=== PATIENT | female | born 1975 | race African-American/Black ===

== ENCOUNTER 2019-07-13 09:34 | Inpatient (IN) | payer MEDICARE ==
[~2019-07-13] VITALS: Ht 162.6 cm; Wt 93.6 kg
[2019-07-13] MEDS ORDERED: LEVO100 PO (09:45)
[2019-07-13] MEDS ORDERED: BUSP10TA23 PO (09:45)
[2019-07-13] MEDS ORDERED: HYDR50CA9 PO (09:45)
[2019-07-13] MEDS ORDERED: TOPI25 PO (09:45)
[2019-07-13] MEDS ORDERED: NAPR-1025 PO (09:45)
[2019-07-13] MEDS ORDERED: QUET200T PO (09:45)
[2019-07-13] MEDS ORDERED: DULO60CA44 PO (09:45)
[2019-07-13] MEDS ORDERED: TRIA1TAB93 PO (09:45)
[2019-07-13] MEDS ORDERED: PREG75 PO (09:45)
[2019-07-13] MEDS ORDERED: COMP5 PO (09:45)
[2019-07-13] MEDS ORDERED: MORPHINE SULFATE 4 MG/ML SYRINGE IVP ONE (10:45)
[2019-07-13] MEDS ORDERED: SODIUM CHLORIDE 0.9% 1,000 ML IV ONE (10:45)
[2019-07-13] MEDS ORDERED: VANCOMYCIN HCL 1 GM/D5% WATER 200 ML IV ONE (10:45)
[2019-07-13 11:05] LABS: ANION GAP 10 mmol/L (8-16); BASOPHILS % (AUTO) 0.7 % (0.0-2.0); CALCIUM, TOTAL 9.3 mg/dL (8.8-10.5); CARBON DIOXIDE 28 mmol/L (22-29); CHLORIDE 105 mmol/L (98-107); CREATININE 1.03 mg/dL (0.60-1.30); EOSINOPHILS % (AUTO) 2.5 % (1.0-6.0); GLOMERULAR FILTR. RATE CALC > 60 mL/min (>60); GLUCOSE,RANDOM 84 mg/dL (70-110); HEMATOCRIT 41.4 % (36-46); HEMOGLOBIN 13.7 g/dL (12.0-16.0); LYMPHOCYTES # (AUTO) 1.3 K/uL (1.0-4.8); LYMPHOCYTES % (AUTO) 11.4 % (22.0-44.0); MEAN CORPUSCULAR HEMOGLOBIN 28.6 pg (26.0-34.0); MEAN CORPUSCULAR HGB CONC 33.1 G/dL (31.0-37.0); MEAN CORPUSCULAR VOLUME 86 fL (80-100); MONOCYTES # (AUTO) 0.6 K/uL (0.1-1.0); MONOCYTES % (AUTO) 5.6 % (2.0-9.0); NEUTROPHILS # (AUTO) 8.9 K/uL (1.8-7.7); NEUTROPHILS % (AUTO) 79.8 % (40.0-70.0); PLATELET COUNT (AUTO) 317 K/uL (150-450); POTASSIUM 3.4 mmol/L (3.5-5.1); SODIUM SERUM 143 mmol/L (136-145); UREA NITROGEN, BLOOD 22 mg/dL (7-18)
[2019-07-13 11:14] LABS: LACTIC ACID 0.6 mmol/L (0.4-2.0)
[2019-07-13] MEDS ORDERED: IOVERSOL 350 MG/ML 100 ML VIAL ONE (11:35)
[2019-07-13] MEDS ORDERED: IBUPROFEN 600 MG TABLET PO ONE (11:45)
[2019-07-13] MEDS ORDERED: ACETAMINOPHEN 325 MG TABLET PO PRN (12:15)
[2019-07-13] MEDS ORDERED: ONDANSETRON HCL 4 MG/2 ML VIAL IVP PRN (12:15)
[2019-07-13] MEDS ORDERED: COMP10 PO (12:21)
[2019-07-13 13:59] VITALS: BP 115/71
[2019-07-13] MEDS ORDERED: INFLUENZA VIRUS VACCINE QVS 2019-20 (3YR+)/PF 60 MCG/0.5 ML SYRINGE IM ONE (15:15)
[2019-07-13] MEDS ORDERED: LEVE500T53 PO ×2 (15:50→15:53)
[2019-07-13] MEDS: BusPIRone HCL 10 MG TABLET PO SCH ×2 (16:18→20:19)
[2019-07-13] MEDS: HYDROCODONE/ACETAMINOPHEN 5-325 MG TABLET PO PRN ×2 (16:18→21:34)
[2019-07-13 17:27] VITALS: BP 112/81
[2019-07-13] MEDS: MORPHINE SULFATE 4 MG/ML SYRINGE IVP PRN ×2 (17:31→23:54)
[2019-07-13 20:19] VITALS: BP 121/89
[2019-07-13] MEDS: QUEtiapine FUMARATE 200 MG TABLET PO SCH (20:19)
[2019-07-13] MEDS: PREGABALIN 75 MG CAPSULE PO SCH (20:19)
[2019-07-13] MEDS: TOPIRAMATE 25 MG TABLET PO SCH (20:19)
[2019-07-13] MEDS: HydrOXYzine PAMOATE 50 MG CAPSULE PO SCH (20:19)
[2019-07-13] MEDS ORDERED: SODIUM CHLORIDE 0.9% 500 ML IV ONE (20:26)
[2019-07-13] MEDS: DULoxetine HCL 60 MG CAPSULE PO SCH (20:28)
[2019-07-13] MEDS: PIPERACILLIN/TAZO 3.375 GM/D5W 50 ML IV SCH (20:28)
[2019-07-13 23:42] VITALS: BP 102/54
[2019-07-13 23:52] VITALS: BP 120/73
[2019-07-14] MEDS: PIPERACILLIN/TAZO 3.375 GM/D5W 50 ML IV SCH ×4 (02:04→20:22)
[2019-07-14] MEDS: MORPHINE SULFATE 2 MG/ML SYRINGE IVP PRN ×4 (04:50→21:56)
[2019-07-14 05:58] VITALS: BP 106/63
[2019-07-14] MEDS: LEVOTHYROXINE SODIUM 100 MCG TABLET PO SCH (06:19)
[2019-07-14] MEDS: IBUPROFEN 400 MG TABLET PO PRN ×2 (07:07→17:38)
[2019-07-14 07:31] VITALS: BP 115/66
[2019-07-14] MEDS: PREGABALIN 75 MG CAPSULE PO SCH ×2 (07:36→20:21)
[2019-07-14] MEDS: LevETIRAcetam 500 MG TABLET PO SCH ×2 (07:37→20:21)
[2019-07-14 07:46] LABS: BASOPHILS % (AUTO) 0.6 % (0.0-2.0); EOSINOPHILS % (AUTO) 3.6 % (1.0-6.0); HEMATOCRIT 37.3 % (36-46); HEMOGLOBIN 12.2 g/dL (12.0-16.0); LYMPHOCYTES # (AUTO) 1.5 K/uL (1.0-4.8); LYMPHOCYTES % (AUTO) 15.7 % (22.0-44.0); MEAN CORPUSCULAR HEMOGLOBIN 28.9 pg (26.0-34.0); MEAN CORPUSCULAR HGB CONC 32.8 G/dL (31.0-37.0); MEAN CORPUSCULAR VOLUME 88 fL (80-100); MONOCYTES # (AUTO) 0.8 K/uL (0.1-1.0); MONOCYTES % (AUTO) 8.1 % (2.0-9.0); NEUTROPHILS # (AUTO) 6.7 K/uL (1.8-7.7); PLATELET COUNT (AUTO) 250 K/uL (150-450); RED BLOOD CELL COUNT(AUTO) 4.23 MIL/uL (4.00-5.20)
[2019-07-14] MEDS: TOPIRAMATE 25 MG TABLET PO SCH ×2 (07:50→20:22)
[2019-07-14] MEDS: HydrOXYzine PAMOATE 50 MG CAPSULE PO SCH ×2 (07:51→20:21)
[2019-07-14] MEDS: BusPIRone HCL 10 MG TABLET PO SCH ×3 (07:51→20:22)
[2019-07-14] MEDS: PROCHLORPERAZINE MALEATE 10 MG TABLET PO PRN (07:52)
[2019-07-14 08:18] LABS: ALANINE AMINOTRANSFERASE 19 U/L (12-78); ALBUMIN 3.1 g/dL (3.4-5.0); ALKALINE PHOSPHATASE 126 U/L (46-116); ANION GAP 5 mmol/L (8-16); ASPARTATE AMINOTRANSFERASE 21 U/L (15-37); BILIRUBIN,TOTAL 0.4 mg/dL (0.1-1.0); CALCIUM, TOTAL 8.8 mg/dL (8.8-10.5); CARBON DIOXIDE 32 mmol/L (22-29); CHLORIDE 106 mmol/L (98-107); CREATININE 0.93 mg/dL (0.60-1.30); GLOMERULAR FILTR. RATE CALC > 60 mL/min (>60); GLUCOSE,RANDOM 85 mg/dL (70-110); POTASSIUM 3.4 mmol/L (3.5-5.1); SODIUM SERUM 143 mmol/L (136-145); TOTAL PROTEIN, SERUM 7.5 g/dL (6.4-8.2); UREA NITROGEN, BLOOD 15 mg/dL (7-18)
[2019-07-14] MEDS ORDERED: TRIAMTERENE/HCTZ 37.5-25 MG TABLET PO SCH (09:00)
[2019-07-14 11:18] VITALS: BP 139/72
[2019-07-14] MEDS: OxyCODONE HCL/ACETAMINOPHEN 5-325 MG TABLET PO PRN ×2 (13:14→20:21)
[2019-07-14] MEDS: TRIAMTERENE/HCTZ 37.5-25 MG CAPSULE PO SCH (13:17)
[2019-07-14 15:18] VITALS: BP 132/82
[2019-07-14] MEDS ORDERED: POTASSIUM CHL 10 MEQ/WATER 50 ML IV PRN (17:45)
[2019-07-14] MEDS: POTASSIUM CHLORIDE 20 MEQ ER TABLET PO PRN (17:59)
[2019-07-14] MEDS: QUEtiapine FUMARATE 200 MG TABLET PO SCH (20:21)
[2019-07-14] MEDS: DULoxetine HCL 60 MG CAPSULE PO SCH (20:22)
[2019-07-14 20:31] VITALS: BP 140/80
[2019-07-15] MEDS: IBUPROFEN 400 MG TABLET PO PRN ×2 (01:03→18:44)
[2019-07-15] MEDS: PIPERACILLIN/TAZO 3.375 GM/D5W 50 ML IV SCH ×4 (01:03→20:03)
[2019-07-15] MEDS: MORPHINE SULFATE 2 MG/ML SYRINGE IVP PRN ×4 (04:37→23:54)
[2019-07-15 04:40] VITALS: BP 116/68
[2019-07-15 05:37] LABS: BASOPHILS % (AUTO) 0.4 % (0.0-2.0); EOSINOPHILS % (AUTO) 3.9 % (1.0-6.0); HEMATOCRIT 35.4 % (36-46); HEMOGLOBIN 11.8 g/dL (12.0-16.0); LYMPHOCYTES # (AUTO) 1.5 K/uL (1.0-4.8); LYMPHOCYTES % (AUTO) 16.6 % (22.0-44.0); MEAN CORPUSCULAR HEMOGLOBIN 29.1 pg (26.0-34.0); MEAN CORPUSCULAR HGB CONC 33.3 G/dL (31.0-37.0); MEAN CORPUSCULAR VOLUME 88 fL (80-100); MONOCYTES # (AUTO) 0.8 K/uL (0.1-1.0); MONOCYTES % (AUTO) 9.1 % (2.0-9.0); NEUTROPHILS # (AUTO) 6.4 K/uL (1.8-7.7); PLATELET COUNT (AUTO) 243 K/uL (150-450); RED BLOOD CELL COUNT(AUTO) 4.05 MIL/uL (4.00-5.20); RED CELL DISTRIBUTION WIDTH 14.9 % (11.5-14.5)
[2019-07-15] MEDS: LEVOTHYROXINE SODIUM 100 MCG TABLET PO SCH (06:11)
[2019-07-15 06:14] LABS: ALANINE AMINOTRANSFERASE 32 U/L (12-78); ALBUMIN 2.8 g/dL (3.4-5.0); ALKALINE PHOSPHATASE 114 U/L (46-116); ANION GAP 5 mmol/L (8-16); ASPARTATE AMINOTRANSFERASE 33 U/L (15-37); BILIRUBIN,TOTAL 0.3 mg/dL (0.1-1.0); CALCIUM, TOTAL 8.9 mg/dL (8.8-10.5); CARBON DIOXIDE 30 mmol/L (22-29); CHLORIDE 107 mmol/L (98-107); CREATININE 0.96 mg/dL (0.60-1.30); GLOMERULAR FILTR. RATE CALC > 60 mL/min (>60); GLUCOSE,RANDOM 80 mg/dL (70-110); POTASSIUM 3.7 mmol/L (3.5-5.1); SODIUM SERUM 142 mmol/L (136-145); UREA NITROGEN, BLOOD 16 mg/dL (7-18)
[2019-07-15 08:01] VITALS: BP 103/60
[2019-07-15] MEDS ORDERED: RINGERS SOLUTION,LACTATED 1,000 ML IV ONE ×2 (10:00→10:45)
[2019-07-15] MEDS ORDERED: LIDOCAINE/PF 1% 30 ML VIAL ONE (10:11)
[2019-07-15] MEDS ORDERED: SODIUM CL IRRIG SOLN BAG 3,000 ML IRRIG ONE (10:12)
[2019-07-15] MEDS ORDERED: BUPIVACAINE HCL/PF 0.5% 30 ML VIAL ONE (10:12)
[2019-07-15] MEDS ORDERED: SODIUM CHLORIDE 0.9% 10 ML ONE (10:13)
[2019-07-15 10:49] LABS: HCG,QUANTITATIVE 3 mIU/mL (0-6)
[2019-07-15] MEDS: HydrOXYzine PAMOATE 50 MG CAPSULE PO SCH ×2 (14:25→20:02)
[2019-07-15] MEDS: PREGABALIN 75 MG CAPSULE PO SCH ×2 (14:25→20:02)
[2019-07-15] MEDS: TRIAMTERENE/HCTZ 37.5-25 MG CAPSULE PO SCH (14:25)
[2019-07-15] MEDS: LevETIRAcetam 500 MG TABLET PO SCH ×2 (14:25→20:02)
[2019-07-15] MEDS: BusPIRone HCL 10 MG TABLET PO SCH ×3 (14:26→20:02)
[2019-07-15] MEDS: TOPIRAMATE 25 MG TABLET PO SCH ×2 (14:26→20:02)
[2019-07-15 14:37] VITALS: BP 115/73
[2019-07-15 16:01] VITALS: BP 102/65
[2019-07-15 19:43] VITALS: BP 115/66
[2019-07-15] MEDS: QUEtiapine FUMARATE 200 MG TABLET PO SCH (20:02)
[2019-07-15] MEDS: DULoxetine HCL 60 MG CAPSULE PO SCH (20:02)
[2019-07-15] MEDS: OxyCODONE HCL/ACETAMINOPHEN 5-325 MG TABLET PO PRN (20:03)
[2019-07-15 23:51] VITALS: BP 110/60
[2019-07-16] MEDS: PIPERACILLIN/TAZO 3.375 GM/D5W 50 ML IV SCH ×4 (02:25→21:08)
[2019-07-16 05:05] VITALS: BP 132/72
[2019-07-16] MEDS: MORPHINE SULFATE 2 MG/ML SYRINGE IVP PRN ×5 (05:39→22:44)
[2019-07-16] MEDS: LEVOTHYROXINE SODIUM 100 MCG TABLET PO SCH (05:39)
[2019-07-16 06:12] LABS: BASOPHILS % (AUTO) 0.5 % (0.0-2.0); EOSINOPHILS % (AUTO) 3.7 % (1.0-6.0); HEMATOCRIT 34.2 % (36-46); HEMOGLOBIN 11.4 g/dL (12.0-16.0); LYMPHOCYTES # (AUTO) 2.1 K/uL (1.0-4.8); LYMPHOCYTES % (AUTO) 22.1 % (22.0-44.0); MEAN CORPUSCULAR HEMOGLOBIN 28.8 pg (26.0-34.0); MEAN CORPUSCULAR HGB CONC 33.3 G/dL (31.0-37.0); MEAN CORPUSCULAR VOLUME 87 fL (80-100); MONOCYTES # (AUTO) 0.8 K/uL (0.1-1.0); MONOCYTES % (AUTO) 8.5 % (2.0-9.0); NEUTROPHILS # (AUTO) 6.1 K/uL (1.8-7.7); NEUTROPHILS % (AUTO) 65.2 % (40.0-70.0); PLATELET COUNT (AUTO) 245 K/uL (150-450); RED BLOOD CELL COUNT(AUTO) 3.95 MIL/uL (4.00-5.20); RED CELL DISTRIBUTION WIDTH 14.9 % (11.5-14.5)
[2019-07-16] MEDS ORDERED: MIDAZOLAM HCL 2 MG/2 ML VIAL IVP ONE (06:29)
[2019-07-16] MEDS ORDERED: PROPOFOL 1% 20 ML VIAL IVP ONE (06:29)
[2019-07-16] MEDS ORDERED: LIDOCAINE/PF 2% 5 ML VIAL IM ONE (06:29)
[2019-07-16] MEDS ORDERED: FentaNYL CITRATE-PF 100 MCG/2 ML VIAL IVP ONE (06:29)
[2019-07-16 06:47] LABS: ALANINE AMINOTRANSFERASE 24 U/L (12-78); ALBUMIN 2.7 g/dL (3.4-5.0); ALKALINE PHOSPHATASE 115 U/L (46-116); ANION GAP 9 mmol/L (8-16); ASPARTATE AMINOTRANSFERASE 27 U/L (15-37); BILIRUBIN,TOTAL 0.4 mg/dL (0.1-1.0); CALCIUM, TOTAL 8.6 mg/dL (8.8-10.5); CARBON DIOXIDE 27 mmol/L (22-29); CHLORIDE 104 mmol/L (98-107); CREATININE 1.01 mg/dL (0.60-1.30); GLOMERULAR FILTR. RATE CALC > 60 mL/min (>60); GLUCOSE,RANDOM 85 mg/dL (70-110); POTASSIUM 3.1 mmol/L (3.5-5.1); SODIUM SERUM 140 mmol/L (136-145); TOTAL PROTEIN, SERUM 6.9 g/dL (6.4-8.2); UREA NITROGEN, BLOOD 14 mg/dL (7-18)
[2019-07-16 07:50] VITALS: BP 110/71
[2019-07-16] MEDS: PREGABALIN 75 MG CAPSULE PO SCH ×2 (08:06→21:06)
[2019-07-16] MEDS: HydrOXYzine PAMOATE 50 MG CAPSULE PO SCH ×2 (08:06→21:08)
[2019-07-16] MEDS: LevETIRAcetam 500 MG TABLET PO SCH ×2 (08:07→21:07)
[2019-07-16] MEDS: TRIAMTERENE/HCTZ 37.5-25 MG CAPSULE PO SCH (08:07)
[2019-07-16] MEDS: BusPIRone HCL 10 MG TABLET PO SCH ×3 (08:07→21:07)
[2019-07-16] MEDS: OxyCODONE HCL/ACETAMINOPHEN 5-325 MG TABLET PO PRN ×2 (08:07→16:47)
[2019-07-16] MEDS: TOPIRAMATE 25 MG TABLET PO SCH ×2 (08:07→21:08)
[2019-07-16] MEDS: POTASSIUM CHLORIDE 20 MEQ ER TABLET PO PRN (08:08)
[2019-07-16 11:20] VITALS: BP 126/74
[2019-07-16] MEDS ORDERED: LIDOCAINE 1% 10 ML VIAL INJ ONE (12:00)
[2019-07-16 15:15] VITALS: BP 118/72
[2019-07-16 19:48] VITALS: BP 133/75
[2019-07-16] MEDS: QUEtiapine FUMARATE 200 MG TABLET PO SCH (21:07)
[2019-07-16] MEDS: IBUPROFEN 400 MG TABLET PO PRN (21:07)
[2019-07-16] MEDS: DULoxetine HCL 60 MG CAPSULE PO SCH (21:08)
[2019-07-16 23:37] VITALS: BP 100/68
[2019-07-17] MEDS: PIPERACILLIN/TAZO 3.375 GM/D5W 50 ML IV SCH ×4 (02:49→20:33)
[2019-07-17 04:36] VITALS: BP 124/80
[2019-07-17] MEDS ORDERED: SODIUM CHLORIDE 0.9% 250 ML IV ONE (05:06)
[2019-07-17] MEDS: MORPHINE SULFATE 2 MG/ML SYRINGE IVP PRN ×4 (05:07→20:33)
[2019-07-17] MEDS: LEVOTHYROXINE SODIUM 100 MCG TABLET PO SCH (05:07)
[2019-07-17 05:47] LABS: BASOPHILS % (AUTO) 0.7 % (0.0-2.0); EOSINOPHILS % (AUTO) 3.2 % (1.0-6.0); HEMATOCRIT 35.1 % (36-46); HEMOGLOBIN 11.5 g/dL (12.0-16.0); LYMPHOCYTES # (AUTO) 2.2 K/uL (1.0-4.8); LYMPHOCYTES % (AUTO) 28.8 % (22.0-44.0); MEAN CORPUSCULAR HEMOGLOBIN 28.7 pg (26.0-34.0); MEAN CORPUSCULAR HGB CONC 32.8 G/dL (31.0-37.0); MEAN CORPUSCULAR VOLUME 87 fL (80-100); MONOCYTES # (AUTO) 0.7 K/uL (0.1-1.0); MONOCYTES % (AUTO) 8.9 % (2.0-9.0); NEUTROPHILS # (AUTO) 4.5 K/uL (1.8-7.7); NEUTROPHILS % (AUTO) 58.4 % (40.0-70.0); PLATELET COUNT (AUTO) 265 K/uL (150-450); RED BLOOD CELL COUNT(AUTO) 4.02 MIL/uL (4.00-5.20); RED CELL DISTRIBUTION WIDTH 14.8 % (11.5-14.5)
[2019-07-17 06:01] LABS: ALBUMIN 2.7 g/dL (3.4-5.0); BILIRUBIN,TOTAL 0.3 mg/dL (0.1-1.0); CALCIUM, TOTAL 9.1 mg/dL (8.8-10.5); CREATININE 1.28 mg/dL (0.60-1.30); POTASSIUM 3.4 mmol/L (3.5-5.1)
[2019-07-17] MEDS: HydrOXYzine PAMOATE 50 MG CAPSULE PO SCH ×2 (08:13→20:32)
[2019-07-17] MEDS: TOPIRAMATE 25 MG TABLET PO SCH ×2 (08:13→20:32)
[2019-07-17] MEDS: TRIAMTERENE/HCTZ 37.5-25 MG CAPSULE PO SCH (08:13)
[2019-07-17] MEDS: OxyCODONE HCL/ACETAMINOPHEN 5-325 MG TABLET PO PRN ×2 (08:13→17:19)
[2019-07-17] MEDS: BusPIRone HCL 10 MG TABLET PO SCH ×3 (08:14→20:32)
[2019-07-17] MEDS: PREGABALIN 75 MG CAPSULE PO SCH ×2 (08:14→20:32)
[2019-07-17] MEDS: LevETIRAcetam 500 MG TABLET PO SCH ×2 (08:14→20:32)
[2019-07-17] MEDS: POTASSIUM CHLORIDE 20 MEQ ER TABLET PO PRN (08:14)
[2019-07-17 09:12] VITALS: BP 102/69
[2019-07-17 11:55] VITALS: BP 121/63
[2019-07-17] MEDS: IBUPROFEN 400 MG TABLET PO PRN (12:45)
[2019-07-17 17:33] VITALS: BP 118/71
[2019-07-17] MEDS: ASCORBIC ACID 500 MG TABLET PO SCH (20:31)
[2019-07-17] MEDS: DULoxetine HCL 60 MG CAPSULE PO SCH (20:32)
[2019-07-17] MEDS: QUEtiapine FUMARATE 200 MG TABLET PO SCH (20:32)
[2019-07-17 20:46] VITALS: BP 109/69
[2019-07-18] VITALS (7 sets, daily range): BP systolic 101–127; BP diastolic 60–75
[2019-07-18] MEDS: MORPHINE SULFATE 2 MG/ML SYRINGE IVP PRN ×3 (00:37→15:05)
[2019-07-18] MEDS: PIPERACILLIN/TAZO 3.375 GM/D5W 50 ML IV SCH ×2 (03:24→08:03)
[2019-07-18] MEDS: OxyCODONE HCL/ACETAMINOPHEN 5-325 MG TABLET PO PRN ×3 (03:30→18:19)
[2019-07-18 05:34] LABS: BASOPHILS % (AUTO) 0.8 % (0.0-2.0); EOSINOPHILS % (AUTO) 4.7 % (1.0-6.0); HEMATOCRIT 30.9 % (36-46); HEMOGLOBIN 10.2 g/dL (12.0-16.0); LYMPHOCYTES # (AUTO) 1.7 K/uL (1.0-4.8); LYMPHOCYTES % (AUTO) 24.1 % (22.0-44.0); MEAN CORPUSCULAR HGB CONC 33.2 G/dL (31.0-37.0); MEAN CORPUSCULAR VOLUME 87 fL (80-100); MONOCYTES # (AUTO) 0.6 K/uL (0.1-1.0); MONOCYTES % (AUTO) 9.2 % (2.0-9.0); NEUTROPHILS # (AUTO) 4.3 K/uL (1.8-7.7); NEUTROPHILS % (AUTO) 61.2 % (40.0-70.0); PLATELET COUNT (AUTO) 236 K/uL (150-450); RED BLOOD CELL COUNT(AUTO) 3.54 MIL/uL (4.00-5.20); RED CELL DISTRIBUTION WIDTH 14.7 % (11.5-14.5)
[2019-07-18] MEDS: LEVOTHYROXINE SODIUM 100 MCG TABLET PO SCH (05:50)
[2019-07-18 06:17] LABS: ALANINE AMINOTRANSFERASE 27 U/L (12-78); ALBUMIN 2.4 g/dL (3.4-5.0); ALKALINE PHOSPHATASE 97 U/L (46-116); ANION GAP 8 mmol/L (8-16); ASPARTATE AMINOTRANSFERASE 27 U/L (15-37); BILIRUBIN,TOTAL 0.2 mg/dL (0.1-1.0); CALCIUM, TOTAL 8.6 mg/dL (8.8-10.5); CARBON DIOXIDE 30 mmol/L (22-29); CHLORIDE 106 mmol/L (98-107); GLOMERULAR FILTR. RATE CALC > 60 mL/min (>60); GLUCOSE,RANDOM 102 mg/dL (70-110); POTASSIUM 3.3 mmol/L (3.5-5.1); SODIUM SERUM 144 mmol/L (136-145); TOTAL PROTEIN, SERUM 6.4 g/dL (6.4-8.2); UREA NITROGEN, BLOOD 21 mg/dL (7-18)
[2019-07-18] MEDS: TRIAMTERENE/HCTZ 37.5-25 MG CAPSULE PO SCH (08:03)
[2019-07-18] MEDS: BusPIRone HCL 10 MG TABLET PO SCH ×3 (08:03→20:16)
[2019-07-18] MEDS: PREGABALIN 75 MG CAPSULE PO SCH ×2 (08:03→20:16)
[2019-07-18] MEDS: HydrOXYzine PAMOATE 50 MG CAPSULE PO SCH ×2 (08:03→20:16)
[2019-07-18] MEDS: LevETIRAcetam 500 MG TABLET PO SCH ×2 (08:03→20:16)
[2019-07-18] MEDS: TOPIRAMATE 25 MG TABLET PO SCH ×2 (08:03→20:16)
[2019-07-18] MEDS: POTASSIUM CHLORIDE 20 MEQ ER TABLET PO PRN (08:03)
[2019-07-18] MEDS: MULTIVITAMINS WITH MINERALS, THERAPEUTIC TABLET PO SCH (08:11)
[2019-07-18] MEDS: ASCORBIC ACID 500 MG TABLET PO SCH ×2 (08:13→20:17)
[2019-07-18] MEDS: IBUPROFEN 400 MG TABLET PO PRN ×2 (09:16→21:27)
[2019-07-18] MEDS ORDERED: VANCOMYCIN HCL 1.5 GM in DEXTROSE 5%-WATER 250 ML IV ONE (12:00)
[2019-07-18] MEDS: VANCOMYCIN HCL 1.25 GM in DEXTROSE 5%-WATER 250 ML IV SCH (20:00)
[2019-07-18] MEDS: DULoxetine HCL 60 MG CAPSULE PO SCH (20:16)
[2019-07-18] MEDS: QUEtiapine FUMARATE 200 MG TABLET PO SCH (20:16)
[2019-07-18] MEDS: NYSTATIN 15 GM POWDER BOTTLE TP SCH (21:27)
[2019-07-19] MEDS: MORPHINE SULFATE 2 MG/ML SYRINGE IVP PRN ×4 (00:46→19:07)
[2019-07-19] MEDS: VANCOMYCIN HCL 1.25 GM in DEXTROSE 5%-WATER 250 ML IV SCH ×3 (00:59→20:17)
[2019-07-19] MEDS ORDERED: SODIUM CHLORIDE 0.9% 500 ML IV ONE (03:47)
[2019-07-19] MEDS: OxyCODONE HCL/ACETAMINOPHEN 5-325 MG TABLET PO PRN ×4 (03:49→20:34)
[2019-07-19 03:50] VITALS: BP 113/81
[2019-07-19] MEDS: LEVOTHYROXINE SODIUM 100 MCG TABLET PO SCH (05:53)
[2019-07-19 07:28] LABS: EOSINOPHILS % (AUTO) 5.2 % (1.0-6.0); HEMOGLOBIN 10.3 g/dL (12.0-16.0); LYMPHOCYTES # (AUTO) 1.6 K/uL (1.0-4.8); LYMPHOCYTES % (AUTO) 27.1 % (22.0-44.0); MEAN CORPUSCULAR HEMOGLOBIN 28.7 pg (26.0-34.0); MEAN CORPUSCULAR HGB CONC 33.2 G/dL (31.0-37.0); MEAN CORPUSCULAR VOLUME 87 fL (80-100); MONOCYTES # (AUTO) 0.5 K/uL (0.1-1.0); MONOCYTES % (AUTO) 8.4 % (2.0-9.0); NEUTROPHILS # (AUTO) 3.5 K/uL (1.8-7.7); NEUTROPHILS % (AUTO) 58.3 % (40.0-70.0); PLATELET COUNT (AUTO) 239 K/uL (150-450); RED BLOOD CELL COUNT(AUTO) 3.59 MIL/uL (4.00-5.20); RED CELL DISTRIBUTION WIDTH 14.7 % (11.5-14.5)
[2019-07-19 07:50] LABS: ALANINE AMINOTRANSFERASE 21 U/L (12-78); ALBUMIN 2.3 g/dL (3.4-5.0); ALKALINE PHOSPHATASE 94 U/L (46-116); ANION GAP 8 mmol/L (8-16); ASPARTATE AMINOTRANSFERASE 20 U/L (15-37); BILIRUBIN,TOTAL 0.2 mg/dL (0.1-1.0); CALCIUM, TOTAL 8.7 mg/dL (8.8-10.5); CARBON DIOXIDE 28 mmol/L (22-29); CHLORIDE 107 mmol/L (98-107); CREATININE 1.01 mg/dL (0.60-1.30); GLOMERULAR FILTR. RATE CALC > 60 mL/min (>60); GLUCOSE,RANDOM 91 mg/dL (70-110); POTASSIUM 3.2 mmol/L (3.5-5.1); SODIUM SERUM 143 mmol/L (136-145); TOTAL PROTEIN, SERUM 6.3 g/dL (6.4-8.2); UREA NITROGEN, BLOOD 23 mg/dL (7-18)
[2019-07-19 08:32] VITALS: BP 123/81
[2019-07-19] MEDS: BusPIRone HCL 10 MG TABLET PO SCH ×3 (09:08→20:18)
[2019-07-19] MEDS: ASCORBIC ACID 500 MG TABLET PO SCH ×2 (09:08→20:18)
[2019-07-19] MEDS: TOPIRAMATE 25 MG TABLET PO SCH ×2 (09:09→20:19)
[2019-07-19] MEDS: LevETIRAcetam 500 MG TABLET PO SCH ×2 (09:09→20:18)
[2019-07-19] MEDS: MULTIVITAMINS WITH MINERALS, THERAPEUTIC TABLET PO SCH (09:09)
[2019-07-19] MEDS: TRIAMTERENE/HCTZ 37.5-25 MG CAPSULE PO SCH (09:09)
[2019-07-19] MEDS: PREGABALIN 75 MG CAPSULE PO SCH ×2 (09:09→20:18)
[2019-07-19] MEDS: HydrOXYzine PAMOATE 50 MG CAPSULE PO SCH ×2 (09:09→20:18)
[2019-07-19] MEDS: NYSTATIN 15 GM POWDER BOTTLE TP SCH ×2 (09:12→20:31)
[2019-07-19 11:48] VITALS: BP 117/77
[2019-07-19] MEDS ORDERED: LIDOCAINE/PRILOCAINE 2.5% 30 GM CREAM TP ONE (14:00)
[2019-07-19] MEDS: PROCHLORPERAZINE MALEATE 10 MG TABLET PO PRN (14:04)
[2019-07-19] MEDS ORDERED: POTASSIUM CHLORIDE 20 MEQ ER TABLET PO ONE (15:45)
[2019-07-19 15:54] VITALS: BP 134/77
[2019-07-19] MEDS: IBUPROFEN 400 MG TABLET PO PRN ×2 (15:58→19:07)
[2019-07-19 19:40] VITALS: BP 126/82
[2019-07-19] MEDS: DULoxetine HCL 60 MG CAPSULE PO SCH (20:18)
[2019-07-19] MEDS: QUEtiapine FUMARATE 200 MG TABLET PO SCH (20:19)
== END 2019-07-19 22:51 | DRG 603 ==
LOC: EMS 09:41 → 4E 12:53
PROVIDERS: ADMIT Hospitalist; ATTEND Hospitalist
PROC: 3E02340 Introduction of Influenza Vaccine into Muscle, Percutaneous Approach (ICD-10-PCS; 2019-07-13)
PROC: 0Y9M0ZZ Drainage of Right Foot, Open Approach (ICD-10-PCS; principal; 2019-07-15 12:00)
DX: L03.115 Cellulitis of right lower limb (principal); L02.611 Cutaneous abscess of right foot; E44.0 Moderate protein-calorie malnutrition; E03.9 Hypothyroidism, unspecified; I10 Essential (primary) hypertension; M79.7 Fibromyalgia; M32.9 Systemic lupus erythematosus, unspecified; F12.90 Cannabis use, unspecified, uncomplicated; F17.210 Nicotine dependence, cigarettes, uncomplicated; F31.9 Bipolar disorder, unspecified; G89.29 Other chronic pain; G40.909 Epilepsy, unspecified, not intractable, without status epilepticus; Z88.2 Allergy status to sulfonamides; Z88.8 Allergy status to other drugs, medicaments and biological substances; Z23 Encounter for immunization; Z68.35 Body mass index [BMI] 35.0-35.9, adult
CPT/HCPCS: 73701; 83605; 84132; 87040; 87070; 87101; 87205; G0378; J2250; J2270; J2543; J2704; J3010; J3370; J3490; J7030; J7040; J7050; J7060; J7120

== ENCOUNTER 2019-07-20 21:28 | Emergency (ER) | payer MEDICARE, OTHER ==
[~2019-07-20] VITALS: Ht 154.9 cm; Wt 86.4 kg
[~2019-07-20 21:28] MED LIST: BUSP10TA23 PO; COMP10 PO; DULO60CA44 PO; HYDR50CA9 PO; LEVE500T53 PO; LEVO100 PO; NAPR-1025 PO; PREG75 PO; QUET200T PO; TOPI25 PO; TRIA1TAB93 PO
[2019-07-20] MEDS ORDERED: BusPIRone HCL 10 MG TABLET PO ONE (23:30)
[2019-07-20] MEDS ORDERED: LEVOTHYROXINE SODIUM 100 MCG TABLET PO ONE (23:30)
[2019-07-20] MEDS ORDERED: OxyCODONE HCL/ACETAMINOPHEN 5-325 MG TABLET PO PRN (23:30)
[2019-07-20] MEDS ORDERED: TOPIRAMATE 25 MG TABLET PO ONE (23:30)
[2019-07-20] MEDS ORDERED: VANCOMYCIN HCL 1 GM/D5% WATER 200 ML IV ONE (23:30)
[2019-07-20] MEDS ORDERED: DULoxetine HCL 60 MG CAPSULE PO ONE (23:30)
[2019-07-20] MEDS ORDERED: PREGABALIN 75 MG CAPSULE PO ONE (23:30)
[2019-07-20] MEDS ORDERED: LevETIRAcetam 500 MG TABLET PO ONE (23:30)
[2019-07-21 00:49] LABS: BASOPHILS % (AUTO) 0.8 % (0.0-2.0); HEMATOCRIT 33.5 % (36-46); HEMOGLOBIN 11.1 g/dL (12.0-16.0); LYMPHOCYTES % (AUTO) 21.3 % (22.0-44.0); MEAN CORPUSCULAR HEMOGLOBIN 28.9 pg (26.0-34.0); MEAN CORPUSCULAR HGB CONC 33.2 G/dL (31.0-37.0); MEAN CORPUSCULAR VOLUME 87 fL (80-100); MONOCYTES # (AUTO) 0.5 K/uL (0.1-1.0); MONOCYTES % (AUTO) 5.4 % (2.0-9.0); NEUTROPHILS # (AUTO) 6.5 K/uL (1.8-7.7); NEUTROPHILS % (AUTO) 69.5 % (40.0-70.0); PLATELET COUNT (AUTO) 279 K/uL (150-450); RED BLOOD CELL COUNT(AUTO) 3.85 MIL/uL (4.00-5.20); RED CELL DISTRIBUTION WIDTH 14.6 % (11.5-14.5)
[2019-07-21 01:02] LABS: ANION GAP 8 mmol/L (8-16); CALCIUM, TOTAL 8.8 mg/dL (8.8-10.5); CARBON DIOXIDE 28 mmol/L (22-29); CHLORIDE 105 mmol/L (98-107); CREATININE 0.99 mg/dL (0.60-1.30); GLOMERULAR FILTR. RATE CALC > 60 mL/min (>60); GLUCOSE,RANDOM 113 mg/dL (70-110); POTASSIUM 3.4 mmol/L (3.5-5.1); SODIUM SERUM 141 mmol/L (136-145); UREA NITROGEN, BLOOD 20 mg/dL (7-18)
[2019-07-21 01:10] LABS: LACTIC ACID 1.1 mmol/L (0.4-2.0)
[2019-07-21 01:17] LABS: ALANINE AMINOTRANSFERASE 24 U/L (12-78); ALBUMIN 2.9 g/dL (3.4-5.0); ALKALINE PHOSPHATASE 118 U/L (46-116); ASPARTATE AMINOTRANSFERASE 26 U/L (15-37); BILIRUBIN,TOTAL 0.3 mg/dL (0.1-1.0); HCG,QUANTITATIVE 4 mIU/mL (0-6)
[2019-07-21 02:47] VITALS: BP 117/56
== END 2019-07-21 03:40 | disposition short-term general hospital (02) ==
LOC: EMS 21:29
DX: L03.115 Cellulitis of right lower limb (principal); E87.6 Hypokalemia; F17.210 Nicotine dependence, cigarettes, uncomplicated; F31.9 Bipolar disorder, unspecified; I10 Essential (primary) hypertension; Z79.899 Other long term (current) drug therapy
CPT/HCPCS: 36415; 80053; 83605; 84702; 85025; 96365; 96366; 99285; J3370